=== PATIENT | female | born 1970 | race Caucasian/White ===

== ENCOUNTER 2016-12-15 20:45 | Emergency (ER) | payer BC ==
[~2016-12-15] VITALS: Ht 162.6 cm; Wt 73.0 kg
[~2016-12-15 20:45] MED LIST: AMOXICILLIN/CL875 MG PO; BENZONATATE200 MG PO; CIPRODEX1 ML AS; CIPROFLOXACN500 MG PO; CORTISPORIN OTI10 ML AD; DAY QUIL; FLONASE NASAL50 MCG; METRONIDAZOL500 MG PO; MUCINEX600 MG PO; TYLENOL325 MG PO; ZOFRAN ODT8 MG PO; [UNRECOGNIZED DRUG - OTHER] PO
[2016-12-15 22:44] LABS: URINE BILIRUBIN - DIPSTICK NEGATIVE (NEGATIVE); URINE BLOOD DIPSTICK NEGATIVE (NEGATIVE); URINE GLUCOSE - DIPSTICK NEGATIVE (NEGATIVE); URINE KETONE NEGATIVE (NEGATIVE); URINE NITRITE - DIPSTICK NEGATIVE (Negative); URINE PROTEIN - DIPSTICK NEGATIVE (NEG-TRACE); URINE SPECIFIC GRAVITY <=1.005; URINE UROBILINOGEN - DIPSTICK 0.2 E.U./dL (0.2)
[2016-12-15 22:46] LABS: URINE CLARITY TURBID; URINE COLOR STRAW; URINE LEUK ESTERASE MODERATE (NEGATIVE)
[2016-12-15 22:47] LABS: HEMATOCRIT 37.9 % (37.0-47.0); HEMOGLOBIN 11.6 g/dl (12.0-16.0); IMMATURE GRANULOCYTES 0.3 % (0.0-1.0); MEAN CELL VOLUME 78.3 fL CALC (80.0-100.0); MEAN CORPUSCULAR HGB CONC 30.6 g/L CALC (32.0-36.0); NEUT# 4.77 thou/uL (2.00-7.15); RED BLOOD COUNT 4.84 mill/uL (4.20-5.60); RED CELL DISTRI WIDTH 15.5 % (11.5-15.5)
[2016-12-15 23:06] LABS: ALBUMIN 4.4 g/dL (3.2-5.0); ALKALINE PHOSPHATASE 75 u/l (38-126); ANION GAP 58 (6-22 (CALC)); BILIRUBIN, TOTAL 0.2 mg/dL (0.0-1.4); BUN 12 mg/dL (7-17); BUN/CREATININE RATIO 20 (12-20 (CALC)); CARBON DIOXIDE 16 mmol/l (22-30); CHLORIDE 86 mmol/l (95-108); CREATININE 0.6 mg/dL (0.5-1.0); GFR > 60 ML/MIN (>=60 (CALC)); GFR FOR AFR.AMER. > 60 ML/MIN (>=60 (CALC)); GLUCOSE 79 mg/dL (65-105); POTASSIUM 2.9 mmol/l (3.5-5.1); SGOT/AST 26 u/l (14-36); SGPT/ALT 19 u/l (9-52); SODIUM 156 mmol/l (137-146); TOTAL PROTEIN 6.6 g/dL (6.3-8.2)
[2016-12-15 23:12] LABS: CALCIUM 4.1 mg/dL (8.4-10.2)
[2016-12-15 23:26] LABS: URINE RBC 0-2 RBC/hpf (0-5); URINE SQUAMOUS EPITHELIAL CELL FEW EPI/hpf (0-FEW)
[2016-12-15 23:57] LABS: BARBITURATES NEGATIVE (NEGATIVE); COCAINE NEGATIVE (NEGATIVE); METHADONE NEGATIVE (NEGATIVE); TETRAHYDROCANNABIONOL NEGATIVE (NEGATIVE); TRICYLIC ANTIDEPRESSANTS NEGATIVE (NEGATIVE)
[2016-12-15 23:58] LABS: OXCYCODONE NEGATIVE (NEGATIVE)
[2016-12-16 00:07] LABS: ALBUMIN 4.5 g/dL (3.2-5.0); ALKALINE PHOSPHATASE 91 u/l (38-126); BILIRUBIN, TOTAL 0.2 mg/dL (0.0-1.4); BUN 14 mg/dL (7-17); BUN/CREATININE RATIO 18 (12-20 (CALC)); CARBON DIOXIDE 26 mmol/l (22-30); CREATININE 0.8 mg/dL (0.5-1.0); GFR > 60 ML/MIN (>=60 (CALC)); GFR FOR AFR.AMER. > 60 ML/MIN (>=60 (CALC)); GLUCOSE 92 mg/dL (65-105); POTASSIUM 4.2 mmol/l (3.5-5.1); SGOT/AST 22 u/l (14-36); SGPT/ALT 28 u/l (9-52); TOTAL PROTEIN 7.5 g/dL (6.3-8.2)
[2016-12-16 00:08] LABS: ANION GAP 16 (6-22 (CALC)); CALCIUM 9.7 mg/dL (8.4-10.2); CHLORIDE 105 mmol/l (95-108); SODIUM 143 mmol/l (137-146)
[2016-12-16] MEDS ORDERED: CIPROFLOXACN500 MG PO (00:55)
[2016-12-16 01:05] VITALS: BP 144/71
== END 2016-12-16 01:22 | disposition home or self-care (01) | DRG 305 ==
LOC: ED 20:45
PROVIDERS: Emergency Medicine
DX: I10 Essential (primary) hypertension (principal); N39.0 Urinary tract infection, site not specified

== ENCOUNTER 2019-05-10 16:18 | Emergency (ER) | payer SELFPAY ==
[~2019-05-10] VITALS: Ht 162.6 cm; Wt 72.7 kg
[2019-05-10] MEDS ORDERED: HYZAAR1 TA1 PO (16:28)
[2019-05-10] MEDS ORDERED: CLOBETASOL 0.025% TOP (16:29)
[2019-05-10] MEDS ORDERED: CEPHALEXIN500 M1 PO (16:38)
[2019-05-10 16:42] VITALS: BP 139/73
== END 2019-05-10 17:00 | disposition home or self-care (01) | DRG 603 ==
LOC: ED 16:18
DX: L03.115 Cellulitis of right lower limb (principal); L29.9 Pruritus, unspecified

== ENCOUNTER 2019-06-07 10:42 | Emergency (ER) | payer SELFPAY ==
[~2019-06-07] VITALS: Ht 162.6 cm; Wt 75.0 kg
[~2019-06-07 10:42] MED LIST changes: +CEPHALEXIN500 M1 PO; +CLOBETASOL 0.025% TOP; +HYZAAR1 TA1 PO
[2019-06-07 12:04] LABS: HEMATOCRIT 43.4 % (37.0-47.0); IMMATURE GRANULOCYTES 0.3 % (0.0-5.0); MEAN CORPUSCULAR HGB 29.8 pG CALC (26.0-32.0); MEAN CORPUSCULAR HGB CONC 33.2 g/L CALC (32.0-36.0); NEUT# 4.44 thou/uL (2.00-7.15); RED BLOOD COUNT 4.84 mill/uL (4.20-5.60); RED CELL DISTRI WIDTH 12.7 % (11.5-15.5)
[2019-06-07 12:07] LABS: HEMOGLOBIN 14.4 g/dl (12.0-16.0); MEAN CELL VOLUME 89.7 fL CALC (80.0-100.0)
[2019-06-07 12:19] LABS: URINE BILIRUBIN - DIPSTICK NEGATIVE (NEGATIVE); URINE BLOOD DIPSTICK LARGE (NEGATIVE); URINE GLUCOSE - DIPSTICK NEGATIVE (NEGATIVE); URINE KETONE TRACE mg/dL (NEGATIVE); URINE PROTEIN - DIPSTICK >=300 mg/dL (NEG-TRACE); URINE SPECIFIC GRAVITY <=1.005
[2019-06-07 12:28] LABS: BARBITURATES NEGATIVE (NEGATIVE); COCAINE NEGATIVE (NEGATIVE); METHADONE NEGATIVE (NEGATIVE); OXCYCODONE NEGATIVE (NEGATIVE); TETRAHYDROCANNABIONOL NEGATIVE (NEGATIVE); TRICYLIC ANTIDEPRESSANTS NEGATIVE (NEGATIVE)
[2019-06-07 12:31] LABS: URINE COLOR RED; URINE LEUK ESTERASE SMALL (NEGATIVE); URINE NITRITE - DIPSTICK POSITIVE (Negative)
[2019-06-07 12:33] LABS: ALBUMIN 4.7 g/dL (3.2-5.0); ALKALINE PHOSPHATASE 69 u/l (38-126); ANION GAP 13 (6-22 (CALC)); BUN 12 mg/dL (7-17); BUN/CREATININE RATIO 22 (12-20 (CALC)); CARBON DIOXIDE 28 mmol/l (22-30); CHLORIDE 105 mmol/l (95-108); CREATININE 0.5 mg/dL (0.5-1.0); GFR > 60 ML/MIN (>=60 (CALC)); GFR FOR AFR.AMER. > 60 ML/MIN (>=60 (CALC)); SGOT/AST 29 u/l (14-36); SODIUM 142 mmol/l (137-146); TOTAL PROTEIN 7.8 g/dL (6.3-8.2)
[2019-06-07 12:33] LABS: URINE BACTERIA MANY hpf; URINE EPITHELIAL CELLS MODERATE EPI/hpf (0-FEW); URINE RBC 50-100 RBC/hpf (0-5)
[2019-06-07 12:38] LABS: BILIRUBIN, TOTAL 0.5 mg/dL (0.0-1.4)
[2019-06-07] MEDS ORDERED: ANTIVERT PO (14:05)
[2019-06-07] MEDS ORDERED: KEFLEX500 M1 PO (14:05)
[2019-06-07 14:22] VITALS: BP 118/57
== END 2019-06-07 14:22 | disposition home or self-care (01) | DRG 690 ==
LOC: ED 10:42
DX: N39.0 Urinary tract infection, site not specified (principal); R42 Dizziness and giddiness; I10 Essential (primary) hypertension

== ENCOUNTER 2019-12-30 | Emergency (ER) | payer BC ==
[~2019-12-30] MED LIST changes: +ANTIVERT PO; +KEFLEX500 M1 PO
--- NOTE | 2020-01-06 12:33 | NUR ---
Notified patient of Negative Covid results. Advised patient to follow up with PCP or to come to ED for urgent needs. Advised patient to continue practicing Covid prevention including washing hands and to avoid contact with others. Patient verbalized understanding.
== END 2019-12-30 19:10 | disposition home or self-care (01) | DRG 864 ==
DX: R50.9 Fever, unspecified (principal); R52 Pain, unspecified; I10 Essential (primary) hypertension; Z20.828 Contact with and (suspected) exposure to other viral communicable diseases

== ENCOUNTER 2020-04-10 11:32 | Emergency (ER) | payer BC ==
[~2020-04-10] VITALS: Ht 162.6 cm; Wt 72.7 kg
[2020-04-10 12:35] LABS: HEMATOCRIT 44.8 % (37.0-47.0); HEMOGLOBIN 14.6 g/dl (12.0-16.0); IMMATURE GRANULOCYTES 0.2 % (0.0-5.0); MEAN CELL VOLUME 91.2 fL CALC (80.0-100.0); MEAN CORPUSCULAR HGB 29.7 pG CALC (26.0-32.0); MEAN CORPUSCULAR HGB CONC 32.6 g/dL CAL (32.0-36.0); NEUT# 4.41 thou/uL (2.00-7.15); RED BLOOD COUNT 4.91 mill/uL (4.20-5.60); RED CELL DISTRI WIDTH 12.6 % (11.5-15.5)
[2020-04-10 13:01] LABS: URINE BILIRUBIN - DIPSTICK NEGATIVE (NEGATIVE); URINE COLOR YELLOW; URINE GLUCOSE - DIPSTICK NEGATIVE (NEGATIVE); URINE KETONE NEGATIVE (NEGATIVE); URINE NITRITE - DIPSTICK NEGATIVE (Negative); URINE PROTEIN - DIPSTICK NEGATIVE (NEG-TRACE); URINE UROBILINOGEN - DIPSTICK 0.2 E.U./dL (0.2)
[2020-04-10 13:01] LABS: ALBUMIN 4.9 g/dL (3.2-5.0); ALKALINE PHOSPHATASE 83 u/l (38-126); ANION GAP 12 (6-22 (CALC)); BILIRUBIN, TOTAL 0.4 mg/dL (0.0-1.4); BUN 12 mg/dL (7-17); BUN/CREATININE RATIO 14 (12-20 (CALC)); CARBON DIOXIDE 27 mmol/l (22-30); CHLORIDE 104 mmol/l (95-108); CREATININE 0.9 mg/dL (0.5-1.0); GFR > 60 ML/MIN (>=60 (CALC)); GFR FOR AFR.AMER. > 60 ML/MIN (>=60 (CALC)); POTASSIUM 3.6 mmol/l (3.5-5.1); SGOT/AST 28 u/l (14-36); SODIUM 140 mmol/l (137-146); TOTAL PROTEIN 8.1 g/dL (6.3-8.2)
[2020-04-10 13:02] LABS: URINE LEUK ESTERASE SMALL (NEGATIVE)
[2020-04-10 13:11] LABS: URINE BACTERIA RARE hpf; URINE BLOOD DIPSTICK NEGATIVE (NEGATIVE); URINE EPITHELIAL CELLS MODERATE EPI/hpf (0-FEW); URINE RBC 0-2 RBC/hpf (0-5)
[2020-04-10 13:13] LABS: MYOGLOBIN 37 ng/mL (0 - 62)
[2020-04-10] MEDS ORDERED: KEFLEX500 M1 PO (13:24)
[2020-04-10 14:22] VITALS: BP 124/42
== END 2020-04-10 14:26 | disposition home or self-care (01) | DRG 690 ==
LOC: ED 11:32
PROVIDERS: Emergency Medicine
DX: N39.0 Urinary tract infection, site not specified (principal); I10 Essential (primary) hypertension

== ENCOUNTER 2021-07-13 12:54 | Emergency (ER) | payer BC ==
[~2021-07-13] VITALS: Ht 152.4 cm; Wt 68.0 kg
[2021-07-13 13:34] LABS: HEMATOCRIT 48.4 % (37.0-47.0); HEMOGLOBIN 15.8 g/dl (12.0-16.0); IMMATURE GRANULOCYTES 0.2 % (0.0-5.0); MEAN CORPUSCULAR HGB CONC 32.6 g/dL CAL (32.0-36.0); NEUT# 6.37 thou/uL (2.00-7.15); RED BLOOD COUNT 5.26 mill/uL (4.20-5.60); RED CELL DISTRI WIDTH 12.4 % (11.5-15.5)
[2021-07-13 13:51] LABS: ALKALINE PHOSPHATASE 103 u/l (38-126); BUN 13 mg/dL (7-17); BUN/CREATININE RATIO 20 (12-20 (CALC)); CARBON DIOXIDE 28 mmol/l (22-30); CHLORIDE 104 mmol/l (95-108); CREATININE 0.6 mg/dL (0.5-1.0); GFR > 60 ML/MIN (>=60 (CALC)); GFR FOR AFR.AMER. > 60 ML/MIN (>=60 (CALC)); SGOT/AST 46 u/l (14-36); SODIUM 142 mmol/l (137-146)
[2021-07-13 13:55] LABS: ANION GAP 15 (6-22 (CALC)); POTASSIUM 4.8 mmol/l (3.5-5.1)
[2021-07-13 18:10] VITALS: BP 126/58
== END 2021-07-13 18:10 | disposition home or self-care (01) | DRG 313 ==
LOC: ED 12:54
PROVIDERS: Family Medicine
DX: R07.9 Chest pain, unspecified (principal); I10 Essential (primary) hypertension

== ENCOUNTER 2023-10-07 17:00 | Emergency (ER) | payer BC ==
[~2023-10-07] VITALS: Ht 162.6 cm; Wt 86.0 kg
[2023-10-07 17:30] VITALS: BP 139/58
[2023-10-07 17:45] VITALS: BP 147/123
[2023-10-07 18:00] VITALS: BP 131/71
[2023-10-07 18:15] VITALS: BP 134/78
[2023-10-07] MEDS ORDERED: KEFLEX500 MG PO (18:21)
[2023-10-07 18:25] VITALS: BP 134/78
== END 2023-10-07 18:30 | disposition home or self-care (01) | DRG 605 ==
LOC: ED 17:00
PROC: 0HQGXZZ Repair Left Hand Skin, External Approach (ICD-10-PCS; principal; 2023-10-07)
DX: S61.412A Laceration without foreign body of left hand, initial encounter (principal); W26.8XXA Contact with other sharp object(s), not elsewhere classified, initial encounter; Y93.89 Activity, other specified; Y92.89 Other specified places as the place of occurrence of the external cause; Y99.0 Civilian activity done for income or pay

== ENCOUNTER 2024-03-24 21:37 | Emergency (ER) | payer SELFPAY ==
[~2024-03-24] VITALS: Ht 162.6 cm; Wt 72.6 kg
[~2024-03-24 21:37] MED LIST changes: +KEFLEX500 MG PO
[2024-03-24] MEDS ORDERED: IBUPROFEN 600 MG/TAB PO ONE (23:50)
[2024-03-24] MEDS ORDERED: ACETAMINOPHEN 500 MG TAB PO ONE (23:50)
[2024-03-25 00:17] LABS: BASO% 0.5 % (0-3); EOS% 0.2 % (0-8); HEMATOCRIT 46.6 % (37.0-47.0); HEMOGLOBIN 14.7 g/dl (12.0-16.0); LYMPH% 12.3 % (15-41); MEAN CELL VOLUME 95.9 fL CALC (80.0-100.0); MEAN CORPUSCULAR HGB 30.2 pG CALC (26.0-32.0); MEAN CORPUSCULAR HGB CONC 31.5 g/dL CAL (32.0-36.0); NEUT# 3.74 thou/uL (2.00-7.15); RED BLOOD COUNT 4.86 mill/uL (4.20-5.60); RED CELL DISTRI WIDTH 12.7 % (11.5-15.5)
[2024-03-25 01:23] VITALS: BP 167/91
== END 2024-03-25 01:23 | disposition home or self-care (01) | DRG 179 ==
LOC: ED 21:37
PROVIDERS: Family Medicine
DX: U07.1 COVID-19 (principal); J02.9 Acute pharyngitis, unspecified; R05.9 Cough, unspecified; R51.9 Headache, unspecified; H92.09 Otalgia, unspecified ear